=== PATIENT | male | born 1955 | race Caucasian/White ===

== ENCOUNTER 2016-08-31 08:56 | Inpatient (IN) | payer OTHER ==
[2016-08-22 12:39] LABS: BASOPHILS 0.6 %; BASOPHILS ABSOLUTE 0.06 10/3/uL (0.0-0.16); EOSINOPHILS ABSOLUTE 0.19 10/3/uL (0.0-0.53); HEMATOCRIT 45.9 % (40.0-51.0); HEMOGLOBIN 15.6 g/dL (13.6-17.8); IMMATURE GRANULOCYTES 0.3 %; IMMATURE GRANULOCYTES ABSOLUTE 0.03 10/3/uL (0.0-0.11); LYMPHOCYTES 24.4 %; LYMPHOCYTES ABSOLUTE 2.37 10/3/uL (0.67-4.30); MEAN CORPUSCULAR HEMOGLOB 31.3 pg (26.0-34.0); MEAN PLATELET VOLUME 12.2 fL (9.2-13.0); MONOCYTES 7.7 %; MONOCYTES ABSOLUTE 0.75 10/3/uL (0.21-1.20); PLATELET COUNT 135 10/3/uL (150-400); RBC DISTRIBUTION WIDTH 13.4 % (12.0-16.0); RED CELL COUNT 4.99 10/6/uL (4.7-6.1); WHITE BLOOD CELLS 9.7 10/3/uL (4.5-10.5)
[2016-08-22 12:40] LABS: ASCORBIC ACID (UR NOT ORDER) NEG (NEG); BILIRUBIN, URINE NEGATIVE (NEG); KETONE, URINE NEGATIVE (NEG); LEUKOCYTE ESTERASE(NOT OR NEG (NEG); WBC (NOT ORDERED) (RFLEX) < 1 (0-5)
[2016-08-22 12:41] LABS: MANUAL DIFF NO %
[2016-08-22 12:42] LABS: BUN (BLOOD UREA NITROGEN) 21 MG/DL (6-23); CALCIUM, SERUM 8.7 MG/DL (8.5-10.4); CHLORIDE, SERUM 106 MMOL/L (96-112); CO2 (CARBON DIOXIDE) 30 MMOL/L (24-34); CREATININE 1.02 MG/DL (0.70-1.30); GFR AFRICAN AMERICAN 92 ML/MIN (>=60); GFR NON AFRICAN AMERICAN 79 ML/MIN (>=60); GLUCOSE, SERUM 76 MG/DL (60-99); POTASSIUM, SERUM 4.3 MMOL/L (3.5-5.3); SODIUM, SERUM 142 MMOL/L (135-148)
--- NOTE | ~2016-08-31 | OP ---
Record Of Operation [facility] [address] [place]. [address] NAME: LARRY SZYMANSKI : 55 STATUS : ADM IN PAT#: [id number] AGE: 61 ADM/REG DATE : 08/31/16 MR#: [id number] REPORT SERV DATE: 08/31/16 DICTATED BY: URBANO MARAVILLA DATE: 08/31/16 REPORT STATUS : Draft TRANSCRIBED BY: MODL DATE: 08/31/16 DATE OF PROCEDURE: 08/31/2016 PREOPERATIVE DIAGNOSIS: Severe claudication right lower extremity with known occlusion of the superficial femoral artery. POSTOPERATIVE DIAGNOSIS: Severe claudication right lower extremity with known occlusion of the superficial femoral artery. SURGERY PERFORMED: Right femoral to mid popliteal artery bypass using 7 mm [place]-Dennis graft. SURGEON: Urbano Maravilla M.D. FRICTION PA[employer] MACHINE TENDER: Jakob. DESCRIPTION OF PROCEDURE: The patient was placed under general endotracheal anesthesia. The right leg was prepped and draped in the sterile fashion. A vertical incision made over the common femoral vessels and carried through skin and subcutaneous tissue. Sharp dissection carried down to the vessels with the common femoral, profunda, and SFA were all encircled with vessel loops. The distal medial thigh incision was made longitudinally and the sartorius muscle was retracted inferiorly and the popliteal space was entered using sharp dissection. The stents extended down to the very proximal part of the popliteal artery. Distal dissection carried out to the mid popliteal that was found to be soft and pliable where it was encircled with vessel loops. He was given 5000 units of heparin. After an adequate period of time, the popliteal was occluded proximally and distally. Arteriotomy was made with an 11 blade and extended with Iqbal scissors. The 7 mm [place]-Dennis graft was sewn end-to-side with running 6-0 HS suture. The subfascial tunnel then created from the groin to the knee incision, the graft was pulled through. The common femoral, profunda, SFA were occluded. Arteriotomy made in the common and extended down just past the takeoff of the profunda femoris vessel. The graft was cut to a length, spatulated, sewn end-to-side using running 6-0 HS suture. After completion, retrograde prograde flushing carried out to the proximal and distal anastomosis, six sutures were tied and clamps released restoring flow to the popliteal artery through this 7-mm graft. Irrigation carried out with dilute Hibiclens solution and then saline. The wound was then closed after hemostasis noted with 2 0 and 3-0 Vicryl for the deep tissue and superficial tissue. Skin closed with 4-0 Monocryl subcuticular stitch and then Dermabond dressing was applied. Estimated blood loss was approximately 100 mL. He was stable during the operation and went to the recovery in satisfactory condition. MG/MODL Urbano Maravilla M.D. Record Of Operation [address] [address] NAME: LARRY SZYMANSKI : 55 STATUS : ADM IN [facility]#: [id number] AGE: 61 ADM/REG DATE : 08/31/16 MR#: [id number] REPORT SERV DATE: 08/31/16 DICTATED BY: URBANO MARAVILLA DATE: 08/31/16 REPORT STATUS : Draft TRANSCRIBED BY: MODL DATE: 08/31/16 / [id number] CC: Urbano Maravilla M.D.
[~2016-08-31 08:56] MED LIST: ASAB PO; CALCIPOTRIEN0.005 % EX; CENTRUM; CENTRUM PO; FISH; FLAX; GARCINIA CAMBOGIA PO; GARLIC PO; GLUCOSAMINEPO PO; IBU800 PO; LIOR10 PO; LISINOPRIL40 MG PO; NEUR100 PO; NIACIN 500 PO; NORV10 PO; PLAVIX PO; VITC500 PO; VITE PO; [UNRECOGNIZED DRUG - OTHER]
[2016-09-01 04:39] LABS: BASOPHILS 0.1 %; BASOPHILS ABSOLUTE 0.01 10/3/uL (0.0-0.16); EOSINOPHILS 0.1 %; EOSINOPHILS ABSOLUTE 0.01 10/3/uL (0.0-0.53); HEMOGLOBIN 13.5 g/dL (13.6-17.8); IMMATURE GRANULOCYTES 0.3 %; IMMATURE GRANULOCYTES ABSOLUTE 0.04 10/3/uL (0.0-0.11); LYMPHOCYTES 8.8 %; MEAN CORPUS HGB CONC 33.3 g/dL (32.0-36.0); MEAN CORPUSCULAR VOLUME 93.1 fL (80-100); MONOCYTES 7.4 %; MONOCYTES ABSOLUTE 1.18 10/3/uL (0.21-1.20); NEUTROPHILS 83.3 %; NEUTROPHILS ABSOLUTE 13.34 10/3/uL (2.02-8.40); PLATELET COUNT 144 10/3/uL (150-400); RBC DISTRIBUTION WIDTH 13.4 % (12.0-16.0); RED CELL COUNT 4.36 10/6/uL (4.7-6.1)
[2016-09-01 04:50] LABS: HEMATOCRIT 40.6 % (40.0-51.0)
[2016-09-01 04:51] LABS: MANUAL DIFF NO %
[2016-09-01 04:59] LABS: BUN (BLOOD UREA NITROGEN) 20 MG/DL (6-23); CALCIUM, SERUM 8.4 MG/DL (8.5-10.4); CHLORIDE, SERUM 106 MMOL/L (96-112); CREATININE 1.09 MG/DL (0.70-1.30); GFR AFRICAN AMERICAN 84 ML/MIN (>=60); GFR NON AFRICAN AMERICAN 73 ML/MIN (>=60); POTASSIUM, SERUM 4.4 MMOL/L (3.5-5.3); SODIUM, SERUM 141 MMOL/L (135-148)
[2016-09-01 05:00] LABS: CO2 (CARBON DIOXIDE) 25 MMOL/L (24-34); GLUCOSE, SERUM 126 MG/DL (60-99)
[2016-09-02 08:01] LABS: BASOPHILS 0.3 %; BASOPHILS ABSOLUTE 0.04 10/3/uL (0.0-0.16); EOSINOPHILS 0.8 %; EOSINOPHILS ABSOLUTE 0.13 10/3/uL (0.0-0.53); HEMATOCRIT 44.3 % (40.0-51.0); HEMOGLOBIN 14.8 g/dL (13.6-17.8); IMMATURE GRANULOCYTES 0.4 %; IMMATURE GRANULOCYTES ABSOLUTE 0.06 10/3/uL (0.0-0.11); LYMPHOCYTES 20.6 %; LYMPHOCYTES ABSOLUTE 3.27 10/3/uL (0.67-4.30); MEAN CORPUS HGB CONC 33.4 g/dL (32.0-36.0); MEAN CORPUSCULAR HEMOGLOB 31.6 pg (26.0-34.0); MEAN CORPUSCULAR VOLUME 94.7 fL (80-100); MEAN PLATELET VOLUME 12.8 fL (9.2-13.0); MONOCYTES 9.3 %; MONOCYTES ABSOLUTE 1.48 10/3/uL (0.21-1.20); NEUTROPHILS 68.6 %; PLATELET COUNT 134 10/3/uL (150-400); RBC DISTRIBUTION WIDTH 13.6 % (12.0-16.0); RED CELL COUNT 4.68 10/6/uL (4.7-6.1); WHITE BLOOD CELLS 15.9 10/3/uL (4.5-10.5)
[2016-09-02 08:07] LABS: MANUAL DIFF NO %
[2016-09-02 08:11] LABS: BUN (BLOOD UREA NITROGEN) 19 MG/DL (6-23); CALCIUM, SERUM 8.7 MG/DL (8.5-10.4); CHLORIDE, SERUM 104 MMOL/L (96-112); CO2 (CARBON DIOXIDE) 28 MMOL/L (24-34); CREATININE 1.16 MG/DL (0.70-1.30); GFR AFRICAN AMERICAN 78 ML/MIN (>=60); GFR NON AFRICAN AMERICAN 68 ML/MIN (>=60); PHOSPHORUS, SERUM 2.8 MG/DL (2.5-4.5); POTASSIUM, SERUM 3.9 MMOL/L (3.5-5.3); SODIUM, SERUM 141 MMOL/L (135-148)
[2016-09-02 08:12] LABS: GLUCOSE, SERUM 98 MG/DL (60-99)
[2016-09-02] MEDS ORDERED: PCET PO (10:41)
[2017-01-06] MEDS ORDERED: FLAXSEED OIL1000 MG PO (01:12)
[2017-01-06] MEDS ORDERED: NIACIN 500 PO (01:12)
[2017-01-06] MEDS ORDERED: GARLIC 1000MG OTC PO (01:12)
[2017-01-06] MEDS ORDERED: KRILLOIL PO (01:12)
[2017-01-06] MEDS ORDERED: APPLE CIDER VINEGAR PO (01:13)
[2017-01-06] MEDS ORDERED: CAYENNE PEPPER PO (01:14)
[2017-01-06] MEDS ORDERED: GLUCOSAMINEPO PO (01:15)
[2017-01-06] MEDS ORDERED: GINGER ROOT PO (01:15)
[2017-01-06] MEDS ORDERED: NORV10 PO (01:15)
[2017-01-06] MEDS ORDERED: PLAVIX PO (01:15)
[2017-01-06] MEDS ORDERED: LISINOPRIL40 MG PO (01:15)
[2017-01-06] MEDS ORDERED: ASAB PO (01:16)
[2017-01-06] MEDS ORDERED: MOTRIN IB200 MG PO (01:17)
[2017-01-06] MEDS ORDERED: TRICOR145 PO (01:17)
[2017-01-06] MEDS ORDERED: ULTRAM50 PO (01:18)
[2017-01-06] MEDS ORDERED: NEUR600 PO (01:18)
[2017-01-06] MEDS ORDERED: SUPER B COMP PO (01:19)
[2017-01-06] MEDS ORDERED: NITROSTAT0.4 MG SL (01:21)
[2017-01-06] MEDS ORDERED: LIOR10 PO (01:21)
[2017-03-01] MEDS ORDERED: ULTRAM ER100 MG PO (10:40)
[2017-03-01] MEDS ORDERED: HARD NAILS PO (10:41)
[2017-03-01] MEDS ORDERED: GARCINIA CAMBOGIA (10:41)
[2017-03-01] MEDS ORDERED: IMDUR60 PO (10:42)
[2017-03-01] MEDS ORDERED: CRESTOR5 MG PO (10:42)
[2017-03-01] MEDS ORDERED: B1100 PO (10:43)
[2017-03-01] MEDS ORDERED: Vitamin B-6 PO (10:43)
[2017-03-01] MEDS ORDERED: Vitamin B-Twelve PO (10:43)
[2017-03-02] MEDS ORDERED: GLUCOSAMINEPO PO (07:11)
[2017-03-02] MEDS ORDERED: FLAXSEED OIL1000 MG PO (07:11)
[2017-03-02] MEDS ORDERED: VITAMIN B-225 MG PO (07:12)
[2017-03-02] MEDS ORDERED: PRAVAC PO (10:29)
== END 2016-09-02 11:24 | disposition home or self-care (01) | DRG 254 ==
LOC: SDC/OF 08:56 → PACU 13:23 → CCU 15:45 → 2SO 09-01 10:00
PROVIDERS: Surgery Vascular Surgery
PROC: 041K0JL Bypass Right Femoral Artery to Popliteal Artery with Synthetic Substitute, Open Approach (ICD-10-PCS; principal; 2016-08-31 10:45)
DX: I70.213 Atherosclerosis of native arteries of extremities with intermittent claudication, bilateral legs (principal); I10 Essential (primary) hypertension; F17.210 Nicotine dependence, cigarettes, uncomplicated; G89.29 Other chronic pain; Z86.73 Personal history of transient ischemic attack (TIA), and cerebral infarction without residual deficits
CPT/HCPCS: 71020; 80048; 81001; 83735; 84100; 85025; 87641; 93005; A9270-GY; C1768; J0690; J2250; J2370; J2405; J2710; J3010; P9045